=== PATIENT | female | born 1945 | race African-American/Black ===

== ENCOUNTER → 2018-01-14 | Outpatient (CLI) | payer MEDICARE, OTHER ==
--- NOTE | 2018-01-14 15:07 | Diagnostic Imaging Report ---
PROCEDURE:L-SPINE COMPLETE COMPARISON:None. INDICATIONS:BACK PAIN FINDINGS: There are five lumbar-type vertebral bodies. Grade 1 anterolisthesis of L5 on S1 without apparent pars defect. There are no fractures, lytic or blastic lesions. Mild disc space narrowing at L4-L5 and L5-S1. Mild facet arthrosis at L4-L5 and moderate facet arthrosis at L5-S1. The sacroiliac joints are unremarkable. Numerous phleboliths project over the pelvis. CONCLUSION: Degenerative changes of the lower lumbar spine as above. No acute osseous abnormalities. Dictated by: Sergey Campa M.D. on 01/14/2018 at 15:11 Electronically approved by: Sergey Campa M.D. on 01/14/2018 at 15:11
--- NOTE | 2018-01-14 15:09 | Diagnostic Imaging Report ---
PROCEDURE:SACRUM X-RAY INDICATION:Low back pain COMPARISON:None. FINDINGS: No acute displaced fractures. Degenerative changes of the lower lumbar spine. Grade 1 anterolisthesis of L5 on S1. Please refer to same day lumbar spine radiographs. Mild degenerative changes of the SI joints without ankylosis. Numerous phleboliths project over the pelvis. CONCLUSION: Degenerative changes as above. No acute osseous abnormalities. Dictated by: Sergey Campa M.D. on 01/14/2018 at 15:14 Electronically approved by: Sergey Campa M.D. on 01/14/2018 at 15:14
== END ==
LOC: RAD 14:05
PROVIDERS: ATTEND Internal Medicine
DX: S33.5XXS Sprain of ligaments of lumbar spine, sequela (principal)
CPT/HCPCS: 72110; 72220

== ENCOUNTER → 2018-10-02 | Day surgery (SDC) | payer OTHER ==
[2018-10-01 14:13] LABS: BASOPHILS % 0.5 % (0.0-1.0); EOSINOPHILS # (AUTO) 0.1 (0.0-0.4); EOSINOPHILS % 1.9 % (0.0-6.0); HEMATOCRIT 35.4 % (34.2-44.1); HEMOGLOBIN 11.3 g/dL (12.0-16.0); LYMPHOCYTES # (AUTO) 3.2 (1.0-3.2); LYMPHOCYTES % 43.5 % (18.0-39.1); MEAN CORPUSCULAR HEMOGLOBIN 29.3 pg (28-32); MEAN CORPUSCULAR HGB CONC 31.9 g/dL (31-35); MEAN CORPUSCULAR VOLUME 91.7 fL (81-99); MONOCYTES # (AUTO) 0.4 (0.2-0.8); MONOCYTES % 4.8 % (4.4-11.3); NEUTROPHILS # (AUTO) 3.6 (2.1-6.9); PLATELET COUNT 288 x10e3/uL (140-360); RED BLOOD COUNT 3.86 x10e6/uL (3.6-5.1); RED CELL DISTRIBUTION WIDTH 15.9 % (11.7-14.4)
[2018-10-01 14:22] LABS: CLARITY,URINE CLEAR (CLEAR); COLOR,URINE YELLOW (YELLOW)
[2018-10-01 14:23] LABS: BILIRUBIN,URINE NEGATIVE (NEGATIVE); KETONES,URINE NEGATIVE (NEGATIVE); LEUKOCYTE ESTERASE ,URINE NEGATIVE (NEGATIVE); NITRITE,URINE NEGATIVE (NEGATIVE); PROTEIN,URINE DIPSTICK NEGATIVE (NEGATIVE); URINE UROBILINOGEN 0.2 mg/dL (0.2 - 1)
--- NOTE | 2018-10-01 14:26 | Diagnostic Imaging Report ---
EXAMINATION: CHEST 2 VIEWS INDICATION: Pre-op COMPARISON: None FINDINGS: TUBES and LINES: None. LUNGS: Lungs are not well inflated. Mild patchy left basilar opacity. No evidence of lobar consolidation or pulmonary edema. PLEURA: No pleural effusion or pneumothorax. HEART AND MEDIASTINUM: The cardiomediastinal silhouette is unremarkable. BONES AND SOFT TISSUES: No acute osseous abnormality. UPPER ABDOMEN: No free air under the diaphragm. IMPRESSION: No acute radiographic abnormality. Mild patchy left basilar opacity, likely atelectasis. Signed by: Dr. Layla Chery MD on 10/01/2018 2:23 PM
[2018-10-01 14:34] LABS: ALBUMIN 3.9 g/dL (3.5-5.0); ALBUMIN/GLOBULIN RATIO 1.1 (0.8-2.0); ANION GAP 12.5 mmol/L (8-16); CALCIUM 9.1 mg/dL (8.4-10.2); CREATININE, SERUM 1.11 mg/dL (0.57-1.11); POTASSIUM 3.5 mmol/L (3.5-5.1)
[~2018-10-02] MED LIST: ALLOPURINOL300 MG PO; ASPIRIN325 MG PO; BUPIVACAINE 0.25%/EPI 30ML SDV INJ ONE; DEXAMETHASONE SOD PHOS INJ 4 MG/ML VIAL ONE; EPHEDRINE SULFATE INJ 50 MG/10 ML SYR ONE; FENTANYL CITRATE/PF 100MCG/2 ML INJ ONE; FOLIC ACID1 MG PO; GABAPENTIN300 MG PO; KETOROLAC TROMETHAMINE 30 MG/ML VIAL ONE; LIDOCAINE HCL 2% LOCAL INJ 5 ML SDV VIAL INJ ONE; LISINOPRIL-HCT1 EAC1 PO; METFORMIN HCL500 MG PO; MIDAZOLAM HCL 2 MG/2 ML VIAL ONE; ONDANSETRON HCL INJ 2MG/ML 2ML 2 MG/ML VIAL ONE; PRAVASTATIN SOD40 MG PO; PROPOFOL IV EMULSION 10 MG/ML 20 ML VIAL ONE; ROCURONIUM BROMIDE 10 MG/ML 5ML VIAL ONE; SEVOFLURANE INHAL SOLN 250 ML PEN BTL ONE
--- OUTSIDE RECORDS SUMMARY | 2018-10-02 08:59 | XMS REPORT ---
Author Author [facility] Address Unknown Phone Unavailable Care Team Providers Care Pattern Generator Operator Name Role Phone Bijal BENDER Unavailable Unavailable Cassandra MCCANN Unavailable Unavailable Problems This patient has no known problems. Allergies, Adverse Reactions, Alerts This patient has no known allergies or adverse reactions. Medications This patient has no known medications. Results Test Description Test Time Test Comments Text Results Atomic Results Result Comments CHEST 2 VIEWS 2018-10-01 14:17:00 [place] [address] Patient Name: SHER FRANKLIN MR #: [id number] : 1945 Age/Sex: 73/F Req #: [id number] Adm Physician: Ordered by: AKUA BENDER MD Report #: [id number] Location: OR Room/Bed: Procedure: [id number] DX/CHEST 2 VIEWS Exam Date: 10/01/18 Exam Time: 1345 REPORT STATUS: Signed EXAMINATION: CHEST 2 VIEWS INDICATION: Pre-op COMPARISON: None FINDINGS: TUBES and LINES: None. LUNGS: Lungs are not well inflated. Mild patchy left basilar opacity. No evidence of lobar consolidation or pulmonary edema. PLEURA: No pleural effusion or pneumothorax. HEART AND MEDIASTINUM: The cardiomediastinal silhouette is unremarkable. BONES AND SOFT TISSUES: No acute osseous abnormality. UPPER ABDOMEN: No free air under the diaphragm. IMPRESSION: No acute radiographic abnormality. Mild patchy left basilar opacity, likely atelectasis. Signed by: Dr. Afshan Rubi MD on 10/01/2018 2:23 PM Dictated By: AFSHAN RUBI MD 22 Transcribed By: PEGGY on 10/01/181422 COPY TO: AKUA BENDER MD SACRUM X-RAY 2018-01-14 15:14:00 [place] [id number] Patient Name: SHER FRANKLIN MR #: [id number] : 1945 Age/Sex: 72/F Req #: [id number] Adm Physician: Ordered by: MARIA DEL CARMEN MCCANN MD Report #: [id number] Location: [facility] Room/Bed: Procedure: [id number] DX/SACRUM X-RAY Exam Date: 01/14/18 Exam Time: 1435 REPORT STATUS: Signed PROCEDURE: SACRUM X-RAY INDICATION: Low back pain COMPARISON: None. FINDINGS: No acute displaced fractures. Degenerative changes of the lower lumbar spine. Grade 1 anterolisthesis of L5 on S1. Please refer to same day lumbar spine radiographs. Mild degenerative changes of the SI joints without ankylosis. Numerous phleboliths project over the pelvis. CONCLUSION: Degenerative changes as above. No acute osseous abnormalities. Dictated by: Sergey Longoria M.D. on 01/14/2018 at 15:14 Electronically approved by: Sergey Longoria M.D. on 01/14/2018 at 15:14 Dictated By: SERGEY LONGORIA MD 1514 Transcribed By: HALLE on 01/14/18 1514 COPY TO: MARIA DEL CARMEN MCCANN MD SP LUMBAR, COMPLETE MIN 4VW 2018-01-14 15:11:00 [place] [address] Patient Name: SHER FRANKLIN MR #: [id number] : 1945 Age/Sex: 72/F Req #: [id number] Adm Physician: Ordered by: MARIA DEL CARMEN MCCANN MD Report #: [id number] Location: [facility] Room/Bed: Procedure: [id number] DX/SP LUMBAR, COMPLETE MIN 4VW Exam Date: 01/14/18 Exam Time: 1435 REPORT STATUS: Signed PROCEDURE: L-SPINE COMPLETE COMPARISON: None. INDICATIONS: BACK PAIN FINDINGS: There are five lumbar-type vertebral bodies. Grade 1 anterolisthesis of L5 on S1 without apparent pars defect. There are no fractures, lytic or blastic lesions. Mild disc space narrowing at L4-L5 and L5-S1. Mild facet arthrosis at L4-L5 and moderate facet arthrosis at L5-S1. The sacroiliac joints are unremarkable. Numerous phleboliths project over the pelvis. CONCLUSION: Degenerative changes of the lower lumbar spine as above. No acute osseous abnormalities. Dictated by: Sergey Longoria M.D. on 01/14/2018 at 15:11 Electronically approved by: Sergey Longoria M.D. on 01/14/2018 at 15:11 Dictated By: SERGEY LONGORIA MD 10 Transcribed By: HALLE on 01/14/18 151 COPY TO: MARIA DEL CARMEN MCCANN MD
[2018-10-02 15:50] VITALS: BP 116/76
--- NOTE | 2018-10-02 21:57 | Operative Report ---
DATE OF PROCEDURE: 10/02/2018 SURGEON: Nestor Marie MD PREOPERATIVE DIAGNOSES: Cholecystitis and cholelithiasis. POSTOPERATIVE DIAGNOSES: Cholecystitis and cholelithiasis. OPERATION PERFORMED: Laparoscopic cholecystectomy. ANESTHESIA: General. COMPLICATIONS: None. ESTIMATED BLOOD LOSS: Minimal. DESCRIPTION OF PROCEDURE: With the patient lying in bed in the supine position under good general endotracheal anesthesia, the abdomen was prepped with Betadine solution and draped in the usual manner. A Veress needle was introduced into the right upper quadrant and pneumoperitoneum was established without any difficulty. A 5 mm trocar was placed in the right subcostal region and a 5 mm videolaparoscope was placed into the intra-abdominal cavity. Examination at this point revealed no adhesions to the subumbilical space from the patient's previous lower abdominal surgeries. An 11 mm trocar was then placed through the umbilicus and a 10 mm videolaparoscope was placed into the intra-abdominal cavity. Under direct vision, 2 more 5 mm trocars were placed in the right subcostal region. Laparoscopy at this point revealed a gallbladder that was totally covered up with thick adhesions with the duodenum stuck to the lower half of the gallbladder. There was at least 1 large stone in the neck of the gallbladder. The rest of the abdominal exploration was otherwise within normal limits. All the adhesions to the gallbladder were then slowly and carefully taken down and the peritoneum overlying the neck of the gallbladder was then opened. The cystic duct was identified and followed to its junction with the common duct. The cystic duct was then circumferentially dissected away from the common duct, doubly clipped and divided. The cystic artery was similarly doubly clipped and divided. The gallbladder was then slowly and carefully taken off the liver bed using the cautery scissors and perfect hemostasis was ascertained. The gallbladder was grasped through the umbilical port and removed without any difficulty. Video laparoscopy was then again carried out. The liver bed was found to be perfectly dry. All the excess fluid was aspirated. The pneumoperitoneum was evacuated and all the trocars were removed under direct vision. The midline fascia at the umbilicus was then closed with a [id number] of 0 Vicryl. All layers were infiltrated on the way out with the solution of 0.25% Marcaine. Subcutaneous tissue was approximated with 3-0 Vicryl and the skin was closed with subcuticular 5-0 Vicryl. Benzoin, Steri-Strips and Band-Aids were applied. The sponge, lap, and needle count was correct. The patient tolerated the procedure well and returned to the recovery room in stable condition. MD FLEX Lentz/MAURICE /[id number]
== END | disposition home or self-care (01) ==
LOC: OR 08:55
PROVIDERS: ATTEND Surgery
DX: K80.10 Calculus of gallbladder with chronic cholecystitis without obstruction (principal); K82.8 Other specified diseases of gallbladder; E11.9 Type 2 diabetes mellitus without complications; I10 Essential (primary) hypertension; J45.909 Unspecified asthma, uncomplicated; Z01.810 Encounter for preprocedural cardiovascular examination; Z01.812 Encounter for preprocedural laboratory examination; Z01.818 Encounter for other preprocedural examination; Z79.82 Long term (current) use of aspirin; Z79.84 Long term (current) use of oral hypoglycemic drugs
CPT/HCPCS: 36415 ×2; 47562; 71046; 80053; 81003; 82948; 85025; 88304; 93005; J1100; J1885; J2001; J2250; J2405; J2704

== ENCOUNTER → 2020-03-20 | Outpatient (CLI) | payer MEDICARE, OTHER ==
[~2020-03-20] MED LIST changes: -BUPIVACAINE 0.25%/EPI 30ML SDV INJ ONE; -DEXAMETHASONE SOD PHOS INJ 4 MG/ML VIAL ONE; -EPHEDRINE SULFATE INJ 50 MG/10 ML SYR ONE; -FENTANYL CITRATE/PF 100MCG/2 ML INJ ONE; -KETOROLAC TROMETHAMINE 30 MG/ML VIAL ONE; -LIDOCAINE HCL 2% LOCAL INJ 5 ML SDV VIAL INJ ONE; -MIDAZOLAM HCL 2 MG/2 ML VIAL ONE; -ONDANSETRON HCL INJ 2MG/ML 2ML 2 MG/ML VIAL ONE; -PROPOFOL IV EMULSION 10 MG/ML 20 ML VIAL ONE; -ROCURONIUM BROMIDE 10 MG/ML 5ML VIAL ONE; -SEVOFLURANE INHAL SOLN 250 ML PEN BTL ONE
--- NOTE | 2020-03-20 11:47 | Diagnostic Imaging Report ---
Bilateral hips, 2 views INDICATION: ^BILATERAL HIP SPRAIN Comparison: None available. Discussion: AP and oblique views of the bilateral hip joints are negative for an acute displaced fracture or dislocation. Hip joint spaces are relatively well-maintained without [id number] articulation and periarticular osteophytes. No evidence of femoro-acetabular impingement. Phleboliths are identified in the pelvis. Pubic symphysis is not widened. Sclerosis of the pubic symphysis is noted, nonspecific. Partially visualized surrounding osseous structures are unremarkable. IMPRESSION: 1. Negative for acute displaced fracture, dislocation or advanced degenerative change of the hip joints. 2. Osteitis pubis. Signed by: Low Morin MD on 03/20/2020 11:43 AM
== END ==
LOC: RAD 10:04
PROVIDERS: ATTEND Internal Medicine
DX: S73.101A Unspecified sprain of right hip, initial encounter (principal); S73.102A Unspecified sprain of left hip, initial encounter
CPT/HCPCS: 73521

== ENCOUNTER → 2020-05-10 | Outpatient (CLI) | payer MEDICARE, OTHER | LOC: RAD 08:51 | PROVIDERS: ATTEND Internal Medicine | DX: J44.1 Chronic obstructive pulmonary disease with (acute) exacerbation (principal) | CPT/HCPCS: 71046 ==

== ENCOUNTER → 2020-09-12 | Outpatient (CLI) | payer MEDICARE | LOC: MAMMO 13:00 | PROVIDERS: ATTEND Internal Medicine | DX: Z12.31 Encounter for screening mammogram for malignant neoplasm of breast (principal); R51.9 Headache, unspecified; J44.1 Chronic obstructive pulmonary disease with (acute) exacerbation | CPT/HCPCS: 70480; 71046; 77067 ==

== ENCOUNTER → 2021-11-12 | Outpatient (CLI) | payer MEDICARE | LOC: RAD 14:58 | PROVIDERS: ATTEND Internal Medicine | DX: M17.12 Unilateral primary osteoarthritis, left knee (principal) ==

== ENCOUNTER → 2022-03-14 | Outpatient (CLI) | payer MEDICARE | LOC: MAMMO 08:23 | PROVIDERS: ATTEND Internal Medicine | DX: Z12.31 Encounter for screening mammogram for malignant neoplasm of breast (principal); Z13.820 Encounter for screening for osteoporosis; J32.4 Chronic pansinusitis; J44.9 Chronic obstructive pulmonary disease, unspecified; N18.31 Chronic kidney disease, stage 3a | CPT/HCPCS: 70220; 77067; 77080 ==

== ENCOUNTER → 2022-06-05 | Outpatient (CLI) | payer MEDICARE | LOC: CT 14:24 | PROVIDERS: ATTEND Internal Medicine | DX: J32.1 Chronic frontal sinusitis (principal) | CPT/HCPCS: 70486 ==

== ENCOUNTER 2023-11-12 12:58 | Outpatient (RCR) | payer MEDICARE, OTHER | END 2023-11-18 | LOC: PT 12:58 | PROVIDERS: ATTEND Internal Medicine | DX: M47.816 Spondylosis without myelopathy or radiculopathy, lumbar region (principal) ==

== ENCOUNTER → 2024-10-18 | Outpatient (REF) | payer MEDICARE, OTHER | LOC: MAMMO 09:58 | PROVIDERS: ATTEND Internal Medicine | DX: Z12.31 Encounter for screening mammogram for malignant neoplasm of breast (principal) | CPT/HCPCS: 77067 ==

== ENCOUNTER → 2025-01-18 | Outpatient (REF) | payer MEDICARE | LOC: RAD 11:10 | PROVIDERS: ATTEND Internal Medicine | DX: M47.12 Other spondylosis with myelopathy, cervical region (principal) | CPT/HCPCS: 72050 ==